=== PATIENT | female | born 1955 | race Caucasian/White ===

== ENCOUNTER 2017-09-07 13:56 | Emergency (ER) | payer OTHER ==
[~2017-09-07] VITALS: Ht 160 cm; Wt 60.7 kg
[2017-09-07] MEDS ORDERED: MORPHINE SULFATE 4 MG/ML, 1ML IVPush PRN (14:30)
[2017-09-07] MEDS ORDERED: ONDANSETRON 2MG/ML, 2ML IVPush ONE (14:30)
[2017-09-07] MEDS ORDERED: BUPIVACAINE/PF 0.5% ONE (14:56)
[2017-09-07] MEDS ORDERED: BUPIVACAINE/PF 0.5% INFIL ONE (15:00)
[2017-09-07 16:17] VITALS: BP 124/74
== END 2017-09-07 16:19 | disposition home or self-care (01) ==
LOC: ED 16:13
DX: S52.501A Unspecified fracture of the lower end of right radius, initial encounter for closed fracture (principal); W11.XXXA Fall on and from ladder, initial encounter; Y93.89 Activity, other specified; Y92.009 Unspecified place in unspecified non-institutional (private) residence as the place of occurrence of the external cause; Y99.9 Unspecified external cause status
CPT/HCPCS: 25605; 99284